=== PATIENT | male | born 1990 | race Two or more races ===

== ENCOUNTER → 2016-10-16 | Outpatient (CLI) | payer OTHER ==
--- NOTE | 2016-10-16 15:18 | RADRPT ---
PROCEDURE: XR Knee 3 Views. CLINICAL INDICATION: Left knee pain. TECHNIQUE: Weightbearing AP, lateral and sunrise view of the left knee were obtained. The images r eviewed on a PACS workstation. COMPARISON: None. FINDINGS: The osseous structures are intact. No destructive bony lesions are observed. Interosseous spaces a re normal. Small suprapatellar joint effusion is observed. IMPRESSION: Small suprapatellar joint effusion. If further characterization is needed CT or MRI could be helpful. RPTAT: AA .Wm Briggs MD, MD Date Time Electronically viewed and signed by .Wm Briggs MD, on 10/16/2016 15:18 .P/
--- NOTE | 2016-10-16 16:40 | CONS ---
Date/Time of Note Date/Time of Note DATE: 10/16/16 TIME: 16:33 Assessment/Plan Assessment/Plan Additional Assessment/Plan Assessment after much discussion the patient was reassured that he has no serious abnormality in regard to his right knee he insisted that he wanted arthroscopic surgery to resolve his issue I informed him about the benefits and risks and complications of arthroscopic surgery and I felt that he is not a candidate for the surgery at this the the complications without would outweigh the benefits if he would to have the arthroscopic surgery. He is to continue to strengthen his quadriceps muscle to continue with his normal activities and if at some stage his knee continues to bother him to come back again for further evaluation Consultation Date/Type/Reason Admit Date/Time Date of Consultation: Oct 16, 2016 Hx of Present Illness History referred from [facility] in [place] Has pain in the left knee for 12 weeks He states he injured it playing soccer 12 weeks ago who did a click in his left knee when he twisted since then it has improvedHe was been seen by a variety of different healthcare providers at [facility] during this period of time x-rays were taken and an MRI scan was done and the MRI report indicated that he had a torn medial meniscus and a possible torn lateral meniscus and a possible or real tear of the anterior cruciate ligament is seen here now for possible surgery Current symptoms he has no pain at all in his Left knee today is occasional ache in the sore in the leftKneeHe denies any giving away of the knee denies any locking of the knee denies any swelling of the kneeHe is able to continue with his normal recreational and normal activitiesHealth is goodFacility taking care of theTaking care of marijuana plants Exam/Review of Systems Exam Physical examination Hilty adult young male age [age] foot 5 weight 170 poundsHe appears in to be in excellent health. He was able to walk with any disturbance of stone severity was able to do repeat deep knee bends without any difficulty. Examination of the Leftknee revealed no evidence of any swelling noted of No deformity was noted there was no tenderness over the medial lateral joint lines there is no evidence of any effusionThe Michelle test was negative the [place] test was negative the Apley grinding test was negative the pivot shift test was negative there was no evidence of any anterior cruciate ligament laxity the anterior drawer sign was negative the posterior drawer sign was negative there was no atrophy of the quadriceps muscles. X-rays of the right knee reveal no fractures or dislocations no loose body formation. I also reviewed an MRI scan of the right knee and I could not see any evidence of a torn medial meniscus a torn lateral meniscus the is an indistinct anterior cruciate ligament but no obvious disruption of the ligament. He presented with a report from a [facility] radiologist [facility] in which indicated a displaced flap of the medial meniscus tear a tear of the lateral meniscus flap tear and a complete disruption of the ACL. When I reviewed the MRI scans show no evidence of this erroneous report of an MRI scan SANG MONCADA Oct 16, 2016 16:40
== END | disposition home or self-care (01) ==
LOC: HKI 15:20
DX: M25.562 Pain in left knee (principal); M25.462 Effusion, left knee